=== PATIENT | female | born 1985 | race Caucasian/White ===

== ENCOUNTER 2017-02-20 09:11 | Inpatient (IN) | payer OTHER ==
[2017-02-20] MEDS ORDERED: ePHEDrine SULFATE IV PRN (09:24)
[2017-02-20] MEDS ORDERED: XYLOCAINE 2% INFILTRATI NR (09:24)
[2017-02-20] MEDS ORDERED: SUBLIMAZE IV PRN (09:24)
--- NOTE | 2017-02-20 09:31 | History and Physical Report ---
History of Present Illness Date of examination: 02/20/17 Date of admission: 02/20/17 09:11 Chief complaint: Here for induction of labor @ 40.2 weeks History of present illness: 31 Y.O with limited care at [facility] farhad [place], , hx of all vaginal deliveries in [place]. GBS neg. Pos chlamydia in November with Neg KAMI . 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 Family/Genetic History: none Social history: no significant social history - Obstetrical History Expected Date of Delivery: 02/17/17 Actual Gestation: 40 Week(s) 3 Day(s) : 7 Para: 6 Hx # Term Pregnancies: 6 Number of Pregnancies: 0 Spontaneous Abortions: 0 Induced : 0 Number of Living Children: 6 Medications and Allergies Allergies Allergy/AdvReac Type Severity Reaction Status Date / Time No Known Allergies Allergy Verified 02/20/17 10:29 Home Medications Medication Instructions Recorded Confirmed Last Taken Type No Known Home Medications [No 02/20/17 02/20/17 Unknown History Reported Home Medications] Active Meds: Active Medications Ephedrine Sulfate (Ephedrine Sulfate) 10 mg IV Q2M PRN PRN Reason: Hypotension Stop: 02/20/17 09:29 Fentanyl (Sublimaze) 100 mcg IV Q2H PRN PRN Reason: Labor Pain Lactated Ringer's (Lactated Ringers) 1,000 mls @ 125 mls/hr IV DIRECT TEAGAN Oxytocin/Sodium Chloride (Pitocin/Ns 20 Unit/1000ml Drip) 20 units in 1,000 mls @ 125 mls/hr IV DIRECT TEAGAN Oxytocin/Sodium Chloride (Pitocin/Ns 30 Unit/500ml) 30 units in 500 mls @ 4 mls /hr IV TITR TEAGAN PRN Reason: Protocol Lidocaine (Xylocaine 2%) 20 ml INFILTRATI ONCE ONE Stop: 02/20/17 09:25 Mineral Oil (Mineral Oil) 30 ml PO QHS PRN PRN Reason: Constipation Terbutaline Sulfate (Brethine) 0.25 mg SUB-Q ONCE PRN PRN Reason: Hyperstimulation/Hypertonicity Stop: 02/20/17 09:25 Terbutaline Sulfate (Brethine) 0.25 mg IVP ONCE PRN PRN Reason: Hyperstimulation/Hypertonicity Stop: 02/20/17 09:25 Review of Systems All systems: negative - Physical Exam Breasts: Positive: deferred Cardiovascular: Regular rate Lungs: Positive: Clear to auscultation Abdomen: Positive: soft Genitourinary (Female): Positive: normal external genitalia Vagina: Positive: normal moisture Uterus: Positive: enlarged Adnexa: both: normal Anus/Rectum: Positive: normal perianal skin Extremities: Positive: normal Deep Tendon Reflex Grade: Normal +2 - Obstetrical FHR: category 1 Uterine Contraction Monitor Mode: External Cervical Dilatation: 3 Cervical Effacement Percentage: 70 station: -1 Uterine Contraction Pattern: Irregular Uterine Contraction Intensity: Mild Results Result Diagrams: 02/20/17 09:41 All other labs normal. Assessment and Plan A; IUP @ 40.2 weeks P: Expect
[2017-02-20] MEDS ORDERED: PITOCin/NS 20 UNIT/1000ML DRIP 20 UNITS/1,000 ML BAG IV SCH (10:00)
[2017-02-20] MEDS ORDERED: PITOCin/NS 30 UNIT/500ML 30 UNITS/500 ML BAG IV SCH (10:00)
[2017-02-20] MEDS ORDERED: LACTATED RINGERS 1,000 ML IV SCH (10:00)
[2017-02-20] MEDS ORDERED: BRETHINE SUB-Q PRN (10:00)
[2017-02-20 10:01] LABS: Hemoglobin 10.8 gm/dl (10.1-14.3); Mean Corpuscular HGB Conc 32 % (30-34); Mean Corpuscular Volume 78 fl (79-97); Platelet Count 177 K/mm3 (140-440); Red Blood Count 4.37 M/mm3 (3.65-5.03); Red Cell Distribution Width 17.4 % (13.2-15.2); White Blood Count 9.6 K/mm3 (4.5-11.0)
[2017-02-20] MEDS ORDERED: BRETHINE IVP PRN (10:05)
[2017-02-20 10:11] LABS: Mean Corpuscular Hemoglobin 25 pg (28-32)
--- NOTE | 2017-02-20 14:05 | Event Note ---
Date: 02/20/17 O: VE /o, AROM, clear fluid, Cat I tracing, Pit at 16 mu A: IUP @ 40.2 weeks, active labor P: EXpect
--- NOTE | 2017-02-20 14:55 | Procedure Note ---
OB Delivery Note - Delivery Date of Delivery: 02/20/17 Surgeon: KANCHAN ONEILL Estimated blood loss: 200cc - Vaginal Delivery presentation: vertex Delivery position: OA Intrapartum events: none Delivery induction: oxytocin Delivery augmentation: rupture of membranes Delivery monitor: external FHT, external uterine Route of delivery: Delivery placenta: spontaneous Delivery cord: 3 umbilical vessels Episiotomy: none Delivery laceration: 1st degree Delivery repair: vicryl Anesthesia: intravenous Delivery comments: of a viable female 6 # 6 oz on 02/20/2017 @ 1437 over first degree laceration. Apgars 8/9.PLacenta delivered S3VCI. Laceration repaired with 2-0 vicryl. FF @ u-2, lochia small. Mother and baby doing well. - A at 1 minute: 8 at 5 minutes: 9 Infant Gender: Female (6-6)
[2017-02-20] MEDS ORDERED: TYLENOL PO PRN (14:56)
[2017-02-20] MEDS ORDERED: ZOFRAN IV PRN (14:56)
[2017-02-20] MEDS ORDERED: TUCKS PAD TP PRN (14:56)
[2017-02-20] MEDS ORDERED: DERMOPLAST TP PRN (14:56)
[2017-02-20] MEDS ORDERED: PHENERGAN PO PRN (14:56)
[2017-02-20] MEDS ORDERED: NORCO 5/325 PO PRN (14:56)
[2017-02-20] MEDS ORDERED: DULCOLAX PR PRN (14:56)
[2017-02-20] MEDS ORDERED: LANSINOH TP PRN (14:56)
[2017-02-20] MEDS ORDERED: MILK OF MAGNESIA PO PRN (14:56)
[2017-02-20] MEDS ORDERED: BENADRYL PO PRN (14:56)
[2017-02-20] MEDS ORDERED: SODIUM CHLORIDE FLUSH SYRINGE 10 ML IV SCH (15:00)
[2017-02-20] MEDS: MOTRIN PO SCH ×2 (18:58→23:38)
[2017-02-20] MEDS ORDERED: MINERAL OIL PO PRN (22:00)
[2017-02-21 04:31] LABS: Hemoglobin 9.6 gm/dl (10.1-14.3)
[2017-02-21] MEDS ORDERED: BOOSTRIX IM ONE ×2 (06:34→15:18)
[2017-02-21] MEDS: MOTRIN PO SCH ×2 (06:36→12:27)
--- NOTE | 2017-02-21 12:54 | Progress Note ---
Assessment and Plan A: PP Day #1 Asymptomatic Anemia P: Follow Routine Orders D/C Home today per patient request RTO in 6 Weeks Subjective - Subjective Date of service: 02/21/17 Patient reports: appetite normal, voiding normally, pain well controlled, ambulating normally : doing well, bottle feeding Objective - Vital Signs Latest vital signs: Vital Signs Temp Pulse Pulse Resp BP BP Pulse Ox 02/21/17 08:32 97.3 F L 75 20 124/65 02/21/17 00:00 98.4 F 84 18 136/70 02/20/17 20:30 98.3 F 85 18 133/57 02/20/17 16:15 98.1 F 88 20 138/82 02/20/17 15:55 93 H 96 02/20/17 15:41 96 H 144/75 02/20/17 15:30 98.1 F 18 02/20/17 15:26 99 H 149/75 02/20/17 15:11 100 H 146/71 02/20/17 14:57 104 H 142/71 02/20/17 14:42 105 H 137/76 02/20/17 14:24 103 H 161/76 02/20/17 13:52 100 H 135/63 02/20/17 13:46 107 H 97 02/20/17 13:23 105 H 138/89 02/20/17 13:00 99.6 F 18 02/20/17 12:53 97 H 136/87 Intake and Output 02/20/17 02/21/17 02/21/17 22:59 06:59 14:59 Intake Total 1370 365 240 Balance 1370 365 240 Intake: IV 1250 125 Lactated Ringers 1,000 ml 550 @ 125 mls/hr IV DIRECT TEAGAN Rx#:[id number] PITOCin/NS 30 UNIT/500ML 700 125 30 units In 500 ml @ 4 mls/hr IV TITR TEAGAN Rx#: [id number] Oral 120 240 240 Other: Total, Intake Amount 120 240 240 # Voids Void 1 Estimated Blood Loss 200 - Exam Breasts: Present: normal Cardiovascular: Present: Regular rate Lungs: Present: Clear to auscultation, Normal air movement Abdomen: Present: normal appearance, soft, normal bowel sounds Uterus: Present: normal, firm, fundal height below umbilicus Extremities: Present: normal - Labs Labs: Abnormal lab results 02/21/17 Range/Units 04:18 Hgb 9.6 L (10.1-14.3) gm/dl Hct 30.0 L (30.3-42.9) %
--- NOTE | 2017-02-21 12:56 | Discharge Summary ---
Providers - Providers Date of Admission: 02/20/17 09:11 Date of discharge: 02/21/17 Attending physician: MIRIAM DALTON MD Primary care physician: MIRIAM DALTON MD Hospitalization Reason for admission: active labor Delivery: Episiotomy: none Laceration: 1st degree Other procedures: none complications: none Discharge diagnosis: IUP at term delivered baby: female Condition at discharge: Good Disposition: DISCHARGED TO HOME OR SELFCARE Plan - Provider Discharge Summary Activity: routine, no sex for 6 weeks, no heavy lifting 4 weeks, no strenuous exercise Diet: routine Instructions: routine Additional instructions: [] Smoking cessation referral if applicable(refer to patient education folder for contact #) [] Refer to [facility] Booklet Call your doctor immediately for: * Fever > 100.5 * Heavy vaginal bleeding ( >1 pad per hour) * Severe persistent headache * Shortness of breath * Reddened, hot, painful area to leg or breast * Drainage or odor from incision. * Keep incision clean and dry at all times and follow doctor's instructions regarding bathing/showering - Follow up plan Follow up: KANCHAN ONEILL CNM [Advanced Practice Nurse] - 6 Weeks
[2017-02-21 17:50] VITALS: BP 124/72
== END 2017-02-21 18:50 | disposition home or self-care (01) | DRG 775 ==
LOC: LD 09:11 → OB 16:15
PROVIDERS: ADMIT Obstetrics & Gynecology; ATTEND Obstetrics & Gynecology
PROC: 10907ZC Drainage of Amniotic Fluid, Therapeutic from Products of Conception, Via Natural or Artificial Opening (ICD-10-PCS; principal; 2017-02-20)
PROC: 10E0XZZ Delivery of Products of Conception, External Approach (ICD-10-PCS; 2017-02-20)
PROC: 3E033VJ Introduction of Other Hormone into Peripheral Vein, Percutaneous Approach (ICD-10-PCS; 2017-02-20)
PROC: 0HQ9XZZ Repair Perineum Skin, External Approach (ICD-10-PCS; 2017-02-20)
DX: O70.0 First degree perineal laceration during delivery (principal); O99.02 Anemia complicating childbirth; D64.9 Anemia, unspecified; Z3A.40 40 weeks gestation of pregnancy; Z37.0 Single live birth
CPT/HCPCS: 36415; 85014; 85018; 85027; 86850; 86900; 86901; 90471; 90715; 99211; G0463; J2590; J3010; J7120